=== PATIENT | female | born 1980 | race Caucasian/White ===

== ENCOUNTER 2017-04-21 00:44 | Emergency (ER) | payer OTHER ==
[2017-04-21 05:30] VITALS: BP 130/69
== END 2017-04-21 05:30 | disposition home or self-care (01) ==
LOC: ED 00:44
DX: F41.9 Anxiety disorder, unspecified (principal); F99 Mental disorder, not otherwise specified; Z79.899 Other long term (current) drug therapy
CPT/HCPCS: J1885; J2060

== ENCOUNTER 2017-05-17 15:51 | Emergency (ER) | payer OTHER ==
[2017-05-17 17:33] VITALS: BP 128/79
== END 2017-05-17 17:33 | disposition home or self-care (01) ==
LOC: ED 15:51
DX: G43.909 Migraine, unspecified, not intractable, without status migrainosus (principal); K04.7 Periapical abscess without sinus; G89.29 Other chronic pain; Z88.1 Allergy status to other antibiotic agents

== ENCOUNTER 2018-05-26 12:46 | Emergency (ER) | payer OTHER ==
[~2018-05-26] VITALS: Ht 167.6 cm; Wt 72.6 kg
[2018-05-26 12:56] VITALS: Ht 167.6 cm; Wt 72.6 kg
[2018-05-26 17:18] VITALS: BP 141/71
== END 2018-05-26 17:18 | disposition home or self-care (01) ==
LOC: ED 12:46
DX: L25.9 Unspecified contact dermatitis, unspecified cause (principal); G43.909 Migraine, unspecified, not intractable, without status migrainosus; G89.29 Other chronic pain; M54.9 Dorsalgia, unspecified; F41.9 Anxiety disorder, unspecified; Z88.1 Allergy status to other antibiotic agents
CPT/HCPCS: J1885; J7030; J7512; Q0163

== ENCOUNTER 2018-06-09 05:58 | Emergency (ER) | payer OTHER ==
[~2018-06-09] VITALS: Ht 167.6 cm; Wt 76.8 kg
[2018-06-09 06:07] VITALS: Ht 167.6 cm; Wt 76.8 kg
[2018-06-09 09:16] VITALS: BP 152/86
== END 2018-06-09 09:16 | disposition home or self-care (01) ==
LOC: ED 05:58
DX: G43.909 Migraine, unspecified, not intractable, without status migrainosus (principal); Z88.1 Allergy status to other antibiotic agents; G89.29 Other chronic pain; F41.9 Anxiety disorder, unspecified
CPT/HCPCS: J0780; J1885

== ENCOUNTER 2018-07-31 17:01 | Emergency (ER) | payer OTHER ==
[~2018-07-31] VITALS: Ht 167.6 cm; Wt 76.7 kg
[2018-07-31 17:09] VITALS: Ht 167.6 cm; Wt 76.7 kg
[2018-07-31 19:38] VITALS: BP 145/73
== END 2018-07-31 19:37 | disposition home or self-care (01) ==
LOC: ED 17:01
DX: S16.1XXA Strain of muscle, fascia and tendon at neck level, initial encounter (principal); Z88.1 Allergy status to other antibiotic agents; X58.XXXA Exposure to other specified factors, initial encounter; Y93.89 Activity, other specified; Y99.8 Other external cause status; Y92.89 Other specified places as the place of occurrence of the external cause
CPT/HCPCS: J1885; Q0092

== ENCOUNTER 2019-10-01 12:47 | Emergency (ER) | payer OTHER ==
[~2019-10-01] VITALS: Ht 167.6 cm; Wt 99.8 kg
[2019-10-01 12:55] VITALS: Ht 167.6 cm; Wt 99.8 kg
[2019-10-01 15:12] VITALS: BP 131/91
== END 2019-10-01 15:12 | disposition home or self-care (01) ==
LOC: ED 12:47
DX: G43.909 Migraine, unspecified, not intractable, without status migrainosus (principal); K08.89 Other specified disorders of teeth and supporting structures; G89.29 Other chronic pain; M54.9 Dorsalgia, unspecified; Z88.0 Allergy status to penicillin
CPT/HCPCS: J0780; J1885

== ENCOUNTER 2019-11-19 17:43 | Emergency (ER) | payer OTHER ==
[~2019-11-19] VITALS: Ht 167.6 cm; Wt 99.8 kg
[2019-11-19 18:01] VITALS: Ht 167.6 cm; Wt 99.8 kg
[2019-11-19 19:43] VITALS: BP 134/78
== END 2019-11-19 19:43 | disposition home or self-care (01) ==
LOC: ED 17:43
DX: S09.90XA Unspecified injury of head, initial encounter (principal); G89.29 Other chronic pain; M54.9 Dorsalgia, unspecified; G43.909 Migraine, unspecified, not intractable, without status migrainosus; Z88.0 Allergy status to penicillin; Y04.8XXA Assault by other bodily force, initial encounter; Y93.89 Activity, other specified; Y92.89 Other specified places as the place of occurrence of the external cause; Y99.8 Other external cause status

== ENCOUNTER 2019-12-11 18:19 | Emergency (ER) | payer OTHER ==
[~2019-12-11] VITALS: Ht 167.6 cm; Wt 102.1 kg
[2019-12-11 18:33] VITALS: Ht 167.6 cm; Wt 102.1 kg
[2019-12-11 19:45] VITALS: BP 122/78
== END 2019-12-11 19:45 | disposition home or self-care (01) ==
LOC: ED 18:19
DX: J45.909 Unspecified asthma, uncomplicated (principal); Z88.0 Allergy status to penicillin

== ENCOUNTER 2020-01-27 16:53 | Emergency (ER) | payer OTHER ==
[~2020-01-27] VITALS: Ht 167.6 cm; Wt 103.9 kg
[2020-01-27 16:57] VITALS: Ht 167.6 cm; Wt 103.9 kg
[2020-01-27 18:29] VITALS: BP 125/81
== END 2020-01-27 18:29 | disposition home or self-care (01) ==
LOC: ED 16:53
DX: J40 Bronchitis, not specified as acute or chronic (principal); G43.909 Migraine, unspecified, not intractable, without status migrainosus; G89.29 Other chronic pain; M54.9 Dorsalgia, unspecified; Z88.1 Allergy status to other antibiotic agents
CPT/HCPCS: J1885; J8597; Q0092

== ENCOUNTER 2020-06-27 07:39 | Emergency (ER) | payer OTHER ==
[~2020-06-27] VITALS: Ht 167.6 cm; Wt 101.2 kg
[2020-06-27 07:46] VITALS: Ht 167.6 cm; Wt 101.2 kg
[2020-06-27 10:42] LABS: BASOPHIL % 0.3 % (0-2); PLATELET COUNT 258 x10^3mcL (130-400)
[2020-06-27 10:44] LABS: RED CELL DISTRIBUTION WIDTH 14.6 % (11.5-14.5)
[2020-06-27 11:15] LABS: CALCIUM 8.3 mg/dL (8.5-10.1); CARBON DIOXIDE 24.7 mmol/L (21-32); CHLORIDE SERUM 103 mmol/L (98-107); CREATININE SERUM 0.9 mg/dL (0.6-1.0); GFR1 > 60 mL/min; GLUCOSE SERUM 122 mg/dL (74-106); POTASSIUM SERUM 3.6 mmol/L (3.5-5.1); SODIUM SERUM 136 mmol/L (136-145)
[2020-06-27 15:09] VITALS: BP 135/88
== END 2020-06-27 15:09 | disposition home or self-care (01) ==
LOC: ED 07:39
PROVIDERS: Emergency Medicine
DX: G43.909 Migraine, unspecified, not intractable, without status migrainosus (principal); R11.0 Nausea
CPT/HCPCS: J0780; J1100; J1200; J1630; J1885; J3475; J7030; Q9967

== ENCOUNTER 2020-07-20 13:23 | Emergency (ER) | payer OTHER ==
[~2020-07-20] VITALS: Ht 167.6 cm; Wt 63.5 kg
[2020-07-20 13:24] VITALS: BP 135/85; Ht 167.6 cm; Wt 63.5 kg
== END 2020-07-20 13:50 | disposition left against medical advice (07) ==
LOC: ED 13:23
DX: Z53.21 Procedure and treatment not carried out due to patient leaving prior to being seen by health care provider (principal)

== ENCOUNTER 2020-08-11 10:37 | Emergency (ER) | payer OTHER ==
[~2020-08-11] VITALS: Ht 167.6 cm; Wt 108.0 kg
[2020-08-11 10:56] VITALS: Ht 167.6 cm; Wt 108.0 kg
[2020-08-11 13:20] VITALS: BP 100/55
== END 2020-08-11 13:20 | disposition home or self-care (01) ==
LOC: ED 10:37
DX: G43.909 Migraine, unspecified, not intractable, without status migrainosus (principal); R59.1 Generalized enlarged lymph nodes; G89.29 Other chronic pain
CPT/HCPCS: J1200; J1885; J2765